=== PATIENT | male | born 1950 | race Hispanic/Latino ===

== ENCOUNTER 2021-06-28 14:32 | Emergency (ER) | payer MEDICARE ==
[~2021-06-28] VITALS: Ht 167.6 cm; Wt 70.8 kg
[2021-06-28 14:34] VITALS: BP 134/70
[2021-06-28] MEDS ORDERED: GUAI5SYR PO (17:39)
[2021-06-28 17:49] VITALS: BP 136/74
== END 2021-06-28 17:53 | disposition home or self-care (01) ==
LOC: EDH 14:32
DX: R05 Cough (principal); J34.89 Other specified disorders of nose and nasal sinuses; F03.90 Unspecified dementia, unspecified severity, without behavioral disturbance, psychotic disturbance, mood disturbance, and anxiety; Z20.822 Contact with and (suspected) exposure to COVID-19
CPT/HCPCS: 71045; 87635; 87804 ×2; 99284; C9803